=== PATIENT | male | born 1955 | race Caucasian/White ===

== ENCOUNTER → 2017-03-28 | Outpatient (REF) ==
[~2017-03-28] MED LIST: ACTOS30 MG PO; ADDERALL5 MG; ASPIRIN E.C. 8181 MG PO; AVALIDE 12.5 MG1 TAB PO; LORTAB 5/500 501 TAB PO; LUNESTA3 MG PO; MULTIPLE VITAMI1 CAP PO; NORCO 325 MG-51 TAB PO; NORCO 325 MG-7.1 TAB PO; PERCOCET 5/321 UDTAB PO; RITALIN SR20 MG PO; TAMIFLU 75MG75 MG PO; VALIUM5 MG PO; ZOFRAN 4MG T4 MG/TAB PO; [UNRECOGNIZED DRUG - OTHER]; [UNRECOGNIZED DRUG - REMARK]
[2017-03-28 19:37] LABS: PSA-TOTAL 0.77 ng/mL (0-4)
[2017-03-28 19:38] LABS: THYROID STIMULATING HORMONE 1.54 uIU/mL (0.465-4.680)
== END ==
LOC: ZLAB.WCH 18:03
PROVIDERS: Internal Medicine
DX: Z01.89 Encounter for other specified special examinations (principal)
CPT/HCPCS: G0103

== ENCOUNTER → 2017-05-03 | Outpatient (CLI) | payer OTHER | LOC: SUN.DIA 11:50 | DX: E11.9 Type 2 diabetes mellitus without complications (principal); I10 Essential (primary) hypertension; Z68.26 Body mass index [BMI] 26.0-26.9, adult; Z71.3 Dietary counseling and surveillance | CPT/HCPCS: G0108 ==

== ENCOUNTER → 2018-04-08 | Outpatient (REF) ==
[~2018-04-08] MED LIST changes: +RITALIN 20M20 MG/TAB PO
[2018-04-08 16:47] LABS: THYROID STIMULATING HORMONE 1.11 uIU/mL (0.465-4.680)
[2018-04-08 16:53] LABS: PSA-TOTAL 1.39 ng/mL (0-4)
== END ==
LOC: ZLAB.WCH 15:41
PROVIDERS: Internal Medicine
DX: Z01.89 Encounter for other specified special examinations (principal)
CPT/HCPCS: G0103

== ENCOUNTER → 2018-05-13 | Outpatient (CLI) | payer BC | LOC: SUN.DIA 11:39 | DX: E11.9 Type 2 diabetes mellitus without complications (principal); I10 Essential (primary) hypertension | CPT/HCPCS: G0108 ==

== ENCOUNTER 2018-07-28 09:06 | Emergency (ER) | payer BC ==
[~2018-07-28] VITALS: Ht 177.8 cm; Wt 81.8 kg
[2018-07-28 09:08] VITALS: TEMP 97.5
[2018-07-28 09:48] LABS: COLLECTION METHOD CLEAN CATCH
[2018-07-28 10:08] LABS: BASO % 0.4 % (0.0-2.0); EOS % 0.1 % (0-4.0); GRAN # 9.1 (1.4-6.5); GRAN % 88.4 % (42.2-75.2); HEMATOCRIT 42.5 % (42.0-52.0); HEMOGLOBIN 14.4 g/dl (13.5-18.0); LYMPH # 0.6 (1.2-3.4); LYMPH % 5.3 % (20.0-51.0); MEAN CELL VOLUME 91 fl (80.0-100.0); MEAN CORPUSCULAR HEMOGLOBIN 31 pg (27.0-31.0); MEAN CORPUSCULAR HGB CONC 34 g/dl (33.0-37.0); MEAN PLATELET VOLUME 10.6 fl (7.4-10.4); MONO # 0.6 (0.1-0.6); MONO % 5.4 % (1.7-9.3); PLATELET COUNT 212 K/mm3 (130-400); RED BLOOD COUNT 4.69 M/mm3 (4.20-5.60); REDCELL DISTRIBUTION WIDTH-CV 12.4 % (11.5-14.5)
[2018-07-28 10:11] LABS: MUCOUS Present /lpf; PH 6 (5-8); SQUAMOUS EPITHELIAL None Seen /hpf; URINE APPEARANCE Clear; URINE BACTERIA None Seen /hpf; URINE BILIRUBIN Negative (NEGATIVE); URINE BLOOD Negative (NEGATIVE); URINE COLOR Yellow; URINE GLUCOSE Negative (NEGATIVE); URINE KETONE Negative (NEGATIVE); URINE LEUKOCYTE ESTERASE Negative (NEGATIVE); URINE NITRATE Negative (NEGATIVE); URINE PROTEIN(semi-quant) Negative (NEGATIVE); URINE RBC 0-2 /hpf; URINE UROBILINOGEN Negative (NEGATIVE)
[2018-07-28 10:13] LABS: ALBUMIN 3.8 gm/dL (3.5-5.0); BILIRUBIN,TOTAL 0.5 mg/dL (0.0-1.0); CALCIUM 8.6 mg/dL (8.4-10.2); CREATININE, serum 1.3 mg/dL (0.66-1.25); POTASSIUM 3.7 mmol/L (3.4-5.0); TOTAL PROTEIN 6.8 gm/dL (6.4-8.2)
[2018-07-28 10:29] LABS: C-REACTIVE PROTEIN 0.6 mg/dL (0.0-0.9)
[2018-07-28] MEDS ORDERED: NORCO 325 MG-51 TAB PO (11:04)
[2018-07-28 11:15] VITALS: BP 131/72; PULSE 62
== END 2018-07-28 11:21 | disposition home or self-care (01) ==
LOC: COL.ER 09:06
PROVIDERS: Family Medicine
DX: N20.1 Calculus of ureter (principal); E11.9 Type 2 diabetes mellitus without complications; Z79.82 Long term (current) use of aspirin
CPT/HCPCS: J1170; J1885; J2405; J7030; Q9967

== ENCOUNTER → 2019-04-22 | Outpatient (CLI) | payer BC | LOC: DIA.ED 09:18 → SUN.DIA 15:43 | DX: E11.9 Type 2 diabetes mellitus without complications (principal); I10 Essential (primary) hypertension | CPT/HCPCS: G0108 ==

== ENCOUNTER → 2020-05-31 | Outpatient (CLI) | payer BC | LOC: DIA.ED 15:14 | DX: E11.9 Type 2 diabetes mellitus without complications (principal); Z79.84 Long term (current) use of oral hypoglycemic drugs; I10 Essential (primary) hypertension | CPT/HCPCS: G0108 ==

== ENCOUNTER → 2021-07-14 | Outpatient (CLI) | payer BC | LOC: DIA.ED 05-25 09:59 | DX: E11.9 Type 2 diabetes mellitus without complications (principal); Z79.84 Long term (current) use of oral hypoglycemic drugs; I10 Essential (primary) hypertension | CPT/HCPCS: G0108 ==

== ENCOUNTER 2022-06-13 20:41 | Observation (INO) | payer MEDICARE, BC ==
[~2022-06-13] VITALS: Ht 25.4 cm; Wt 81.8 kg
[2022-06-13 21:13] LABS: COLLECTION METHOD CLEAN CATCH
[2022-06-13 21:31] LABS: MUCOUS Present (NOT PRESENT); SQUAMOUS EPITHELIAL None Seen /hpf (0-10); URINE BACTERIA None Seen /hpf (NONE SEEN); URINE RBC 0-2 /hpf (0-2)
[2022-06-13 21:40] LABS: URINE APPEARANCE Clear (CLEAR/HAZY); URINE BLOOD Negative (NEGATIVE); URINE COLOR Yellow (YELLOW); URINE GLUCOSE Negative (NEGATIVE); URINE KETONE Negative (NEGATIVE); URINE NITRATE Negative (NEGATIVE); URINE PROTEIN(semi-quant) Negative (NEGATIVE); URINE UROBILINOGEN 0.2 E.U/dL (0.2-1.0)
[2022-06-13 21:47] LABS: PROTHROMBIN TIME 11.6 SECONDS (9.7-12.8)
[2022-06-13 22:00] LABS: TROPONIN-I < 0.010 ng/mL (0.00-0.033)
[2022-06-13 22:02] LABS: ALANINE AMINOTRANSFERASE 20 U/L (0-55); ALBUMIN 3.9 gm/dL (3.4-4.8); ALKALINE PHOSPHATASE 58 U/L (40-150); ANION GAP 11 mmol/L (7-16); AST,SGOT 22 U/L (5-34); BILIRUBIN,TOTAL 0.4 mg/dL (0.2-1.2); BLOOD UREA NITROGEN 31 mg/dL (8-26); CALCIUM 9.5 mg/dL (8.4-10.2); CARBON DIOXIDE 23 mmol/L (23-31); CHLORIDE 107 mmol/L (98-107); CREATINE KINASE 177 U/L (30-200); CREATININE, serum 1.14 mg/dL (0.72-1.25); GLUCOSE 135 mg/dL (70-99); POTASSIUM 4.5 mmol/L (3.5-4.5); SODIUM 141 mmol/L (136-145); TOTAL PROTEIN 7.3 gm/dL (6.2-8.1)
[2022-06-13 22:21] LABS: BASO % 0.5 % (0.0-2.0); EOS # 0.1 K/mm3 (0.0-0.7); GRAN % 69.6 % (42.2-75.2); HEMATOCRIT 41.7 % (42.0-52.0); HEMOGLOBIN 14.3 g/dl (13.5-18.0); LYMPH # 1.1 K/mm3 (1.2-3.4); LYMPH % 19.6 % (20.0-51.0); MEAN CELL VOLUME 91 fl (80.0-100.0); MEAN CORPUSCULAR HEMOGLOBIN 31 pg (27-31); MEAN CORPUSCULAR HGB CONC 34 g/dl (33.0-37.0); MEAN PLATELET VOLUME 10.6 fl (7.4-10.4); MONO # 0.5 K/mm3 (0.1-0.6); PLATELET COUNT 227 K/mm3 (130-400); RED BLOOD COUNT 4.58 M/mm3 (4.20-5.60); REDCELL DISTRIBUTION WIDTH-CV 12.8 % (11.5-14.5)
[2022-06-14] VITALS (10 sets, daily range): BP systolic 121–154; BP diastolic 60–80; PULSE 54–88; TEMP 98–98.9
--- NOTE | 2022-06-14 01:15 | NUR ---
PATIENT ARRIVES TO MEDICAL BY WHEELCHAIR AND IS ABLE TO TRANSFER SELF TO BED. PATIENT HAS A STEADY GATE AND HAS NO COMPLAINTS OF DIZZINESS AT THIS TIME. PATIENT IS OREINTED TO ROOM. PATIENT ADMISSION INTAKE IS COMPLETRED. PATIENT REQUESTS APPLESAUCE AND WATER WHICH THIS NURSE PROVIDED. PATIENT STATED GRAFEFULNESS. CALL LIGHT IS WITHIN PATIENT REACH AND PATIENT IS ENCOURAGED TO CALL WITH ANY NEEDS OR CONCERNS.
[2022-06-14 04:50] LABS: BASO % 0.7 % (0.0-2.0); EOS # 0.1 K/mm3 (0.0-0.7); EOS % 1.2 % (0.0-4.0); GRAN # 3.2 K/mm3 (1.4-6.5); GRAN % 55.4 % (42.2-75.2); HEMATOCRIT 40.2 % (42.0-52.0); HEMOGLOBIN 13.1 g/dl (13.5-18.0); LYMPH # 1.9 K/mm3 (1.2-3.4); LYMPH % 33.5 % (20.0-51.0); MEAN CELL VOLUME 94 fl (80.0-100.0); MEAN CORPUSCULAR HEMOGLOBIN 31 pg (27-31); MEAN CORPUSCULAR HGB CONC 33 g/dl (33.0-37.0); MEAN PLATELET VOLUME 10.7 fl (7.4-10.4); MONO # 0.5 K/mm3 (0.1-0.6); MONO % 8.8 % (1.7-9.3); PLATELET COUNT 202 K/mm3 (130-400); RED BLOOD COUNT 4.27 M/mm3 (4.20-5.60); REDCELL DISTRIBUTION WIDTH-CV 12.8 % (11.5-14.5)
[2022-06-14 05:09] LABS: CALCIUM 8.6 mg/dL (8.4-10.2); CREATININE, serum 0.98 mg/dL (0.72-1.25); POTASSIUM 3.7 mmol/L (3.5-4.5)
--- NOTE | 2022-06-14 06:01 | NUR ---
PATIENT HAS HAD UNEVENTFUL NIGHT AND IS LAYING IN BED WATCHING TELEVISION. CALL LIGHT REMAINS IN REACH OF PATIENT AND PATIENT HAS BEEN ENCOURAGED TO CALL WITH ANY NEEDS OR CONCERNS. PATIENT STATES APPRECIATION FOR THE INFORMATION.
--- NOTE | 2022-06-14 08:00 | NUR ---
Patient is resting in bed, alert and oriented x 4, VSS. Just ordered breakfast but was canceled for cardiology orders of a lexiscan. Patient aware. Assessment completed, meds provided, no other needs at this time. Tyler light within reach.
--- NOTE | 2022-06-14 10:14 | NUR ---
Initial visit: Al thanked [employer] Dipper for looking in on him and offering God's blessings and encouragement.
--- NOTE | 2022-06-14 12:38 | NUR ---
Surgical Technologist attempted to meet with patient to discuss discharge planning, however he was out of the room for a procedure. , Isabelle is in patient's room and agreeable to answer questions. Patient lives in [place] with his and sees Dr. Chopra for primary care. Patient obtains medications from [facility] with no difficulties. Patient does not use any DME and is independent with [facility]LS. Patient's stated patient is in great shape. Patient does not have Advance Directives and stated they are not interested in DPOA-HC at this time. Patient plans to return home at time of discharge. Discharge Plan: Home
--- NOTE | 2022-06-14 17:09 | NUR ---
Patient was provided with discharge information, IV access and telemetry were discontinued. All questions answered. He is waiting for his to go home.
== END 2022-06-14 17:11 | disposition home or self-care (01) ==
LOC: COL.ER 20:41 → MEDICAL 23:21
PROVIDERS: Emergency Medicine; Student in an Organized Health Care Education/Training Program; ADMIT Internal Medicine
DX: R42 Dizziness and giddiness (principal); M54.2 Cervicalgia; R53.81 Other malaise; I10 Essential (primary) hypertension; E11.9 Type 2 diabetes mellitus without complications; G47.419 Narcolepsy without cataplexy; R51.9 Headache, unspecified; I77.810 Thoracic aortic ectasia; Z79.84 Long term (current) use of oral hypoglycemic drugs; Z79.82 Long term (current) use of aspirin
CPT/HCPCS: A9500; G0378; J1650; J2785; J7030

== ENCOUNTER → 2022-06-21 | Outpatient (CLI) | payer MEDICARE, BC | LOC: DIA.ED 00:30 | DX: E11.9 Type 2 diabetes mellitus without complications (principal); Z79.84 Long term (current) use of oral hypoglycemic drugs; I10 Essential (primary) hypertension ==

== ENCOUNTER → 2024-06-19 | Outpatient (CLI) | payer MEDICARE, BC | LOC: DIA.ED 06-12 09:34 | DX: E11.9 Type 2 diabetes mellitus without complications (principal); Z79.84 Long term (current) use of oral hypoglycemic drugs; I10 Essential (primary) hypertension | CPT/HCPCS: G0108 ==